=== PATIENT | male | born 1990 | race Caucasian/White ===

== ENCOUNTER 2024-06-16 14:37 | Emergency (ER) | payer SELFPAY ==
[~2024-06-16] VITALS: Ht 162.6 cm; Wt 81.0 kg
[2024-06-16] MEDS ORDERED: LIDOCAINE HCL/PF 1% 10 MG/ML 5ML VIAL INFIL ONE (15:00)
[2024-06-16] MEDS ORDERED: TETANUS, DIPHTHERIA, PERTUSSIS VAC/PF 0.5ML (>10YR OLD) IM ONE (15:00)
[2024-06-16] MEDS ORDERED: LIDOCAINE HCL 1% 20ML VIAL INFIL ONE (15:15)
[2024-06-16] MEDS: TETANUS, DIPHTHERIA, PERTUSSIS VAC/PF 0.5ML (>10YR OLD) IM ONE (15:22)
[2024-06-16] MEDS: CEFAZOLIN SODIUM 1000MG/VIAL IM ONE (16:03)
== END 2024-06-16 16:21 | disposition home or self-care (01) ==
LOC: ER 14:37
DX: S61.012A Laceration without foreign body of left thumb without damage to nail, initial encounter (principal); W31.2XXA Contact with powered woodworking and forming machines, initial encounter; Y93.89 Activity, other specified; Y92.89 Other specified places as the place of occurrence of the external cause; Y99.8 Other external cause status
CPT/HCPCS: 99284; 90715; 12004; 90471; 96372; J0690; J3490; J2003